=== PATIENT | male | born 1990 | race Caucasian/White ===

== ENCOUNTER → 2017-12-04 | Outpatient (CLI) | payer OTHER ==
[~2017-12-04] MED LIST: DIPH25TA24 PO; SNG10 PO
--- NOTE | 2017-12-06 12:10 | PULMONARY FUNCTION TEST ---
Spirometry is within the limits of normal. Repeat study done following bronchodilators showed no significant change in function. Flow volume loops suggest that on the pre-bronchodilator study, he did not optimally perform the procedure. Flow volume loops post-bronchodilator are normal.
== END | disposition home or self-care (01) ==
LOC: C.RC 12:33
PROVIDERS: ATTEND Internal Medicine
DX: J45.40 Moderate persistent asthma, uncomplicated (principal)